=== PATIENT | male | born 1990 | race African-American/Black ===

== ENCOUNTER 2022-02-15 20:09 | Emergency (ER) | payer OTHER ==
[~2022-02-15] VITALS: Ht 185.4 cm; Wt 132.1 kg
[2022-02-15 20:31] VITALS: BP 180/121
[2022-02-16] MEDS ORDERED: AMLO10TA4 MT (22:14)
[2022-02-16] MEDS ORDERED: DOXY100C5 MT (22:14)
== END 2022-02-15 23:02 | disposition left against medical advice (07) ==
LOC: ER 20:09
DX: Z53.21 Procedure and treatment not carried out due to patient leaving prior to being seen by health care provider (principal)

== ENCOUNTER 2022-02-16 20:09 | Inpatient (IN) | payer OTHER ==
[~2022-02-16] VITALS: Ht 185.4 cm; Wt 114.0 kg
[2022-02-16] MEDS ORDERED: AMLODIPINE 10MG TABLET PO ONE (22:00)
[2022-02-16] MEDS ORDERED: DOXY100C5 MT (22:14)
[2022-02-16] MEDS ORDERED: AMLO10TA4 MT (22:14)
[2022-02-16] MEDS ORDERED: GENTAMICIN SULF 40MG/ML 2ML VIAL IM ONE (22:15)
[2022-02-16 22:19] LABS: CLARITY URINE CLOUDY (CLEAR); COLOR URINE YELLOW (YELLOW); KETONES URINE NEGATIVE (NEGATIVE); LEUKOCYTE ESTERASE URINE 2+ (NEGATIVE); NITRITE URINE NEGATIVE (NEGATIVE); OCCULT BLOOD URINE 1+ (NEGATIVE); PH URINE 5.5 (4.5-8.0); PROTEIN URINE 3+ (NEGATIVE); SPECIFIC GRAVITY URINE 1.021 (1.005-1.030); UROBILINOGEN URINE 0.2 E.U./dL (0.2-1.0)
[2022-02-16] MEDS ORDERED: FLUCONAZOLE 50MG TABLET PO ONE (22:30)
[2022-02-16] MEDS ORDERED: INSULIN REGULAR (HUMULIN R) UD 100 UNITS/ML SYR SUBCUT ONE (22:30)
[2022-02-16] MEDS ORDERED: SODIUM CHLORIDE 0.9% 1,000 ML IV ONE ×2 (22:30)
[2022-02-16] MEDS ORDERED: DOXYCYCLINE HYCLATE 100 MG/VIAL IV ONE (22:30)
[2022-02-16] MEDS ORDERED: DOXYCYCLINE 100MG in DEXTROSE 5% WATER 100ML IV NR (22:30)
[2022-02-16 22:51] LABS: BASOPHILS % 0.6 % (0.0-2.0); EOSINOPHILS % 3.1 % (0.0-5.0); HEMATOCRIT. 37.9 % (42.0-52.0); HEMOGLOBIN. 13.5 g/dL (14.0-18.0); LYMPHOCYTES % 37.2 % (20.0-50.0); MEAN CORPUSCULAR HEMOGLOBIN 33.7 pg (28.0-32.0); MEAN CORPUSCULAR VOLUME 94.6 fL (80.0-94.0); MEAN PLATELET VOLUME 8.5 fl (7.4-10.4); MONOCYTES % 5.5 % (2.0-8.0); NEUTROPHILS % 53.6 % (40.0-76.0); PLATELET 272 x1000/uL (130-400); RED BLOOD CELL COUNT 4.01 mill/uL (4.7-6.1); RED CELL DISTRIBUTION WIDTH 13.9 % (11.6-14.6)
[2022-02-16 22:58] LABS: CHLORIDE 97 mEq/L (98-107)
[2022-02-16 23:05] LABS: BETA HYDROXYBUTYRATE 0.1 mMol/L (0.0-0.3)
[2022-02-16] MEDS ORDERED: INSULIN REGULAR (HUMULIN R) 300UNITS/3ML VIAL SUBCUT NR (23:30)
[2022-02-16] MEDS ORDERED: LEVOFLOXACIN 750MG PREMIX 150 ML IV ONE (23:30)
[2022-02-17] MEDS ORDERED: HYDRALAZINE 20MG/ML VIAL IV ONE (00:15)
[2022-02-17] MEDS ORDERED: ASPIRIN 325MG EC TABLET PO ONE (00:15)
[2022-02-17] MEDS ORDERED: ONDANSETRON HCL 4MG/2ML INJ IV PRN (08:15)
[2022-02-17] MEDS ORDERED: DEXTROSE 50% WATER 50ML SYRINGE IV PRN (08:15)
[2022-02-17] MEDS ORDERED: ACETAMINOPHEN 325MG TABLET PO PRN (08:15)
[2022-02-17] MEDS ORDERED: AMLODIPINE 10MG TABLET PO SCH (09:00)
[2022-02-17 09:30] VITALS: BP 155/85
[2022-02-17] MEDS ORDERED: INSULIN GLARGINE 100 UNITS/ML SUBCUT SCH (10:00)
[2022-02-17] MEDS ORDERED: BLOOD SUGAR DIAGNOSTIC STRIP TEST SCH (11:30)
[2022-02-17] MEDS ORDERED: INSULIN LISPRO 100 UNITS/ML SUBCUT SCH (12:00)
[2022-02-19 08:07] LABS: NEISSERIA GONORRHOEAE NAA Negative (Negative)
== END 2022-02-17 10:03 | disposition left against medical advice (07) | DRG 468 ==
LOC: ER 20:09 → MICUSO 02-17 00:08
PROVIDERS: ADMIT Internal Medicine; ATTEND Internal Medicine
DX: R36.9 Urethral discharge, unspecified (principal); N17.9 Acute kidney failure, unspecified; Z88.0 Allergy status to penicillin; N39.0 Urinary tract infection, site not specified; R73.9 Hyperglycemia, unspecified; I16.0 Hypertensive urgency
CPT/HCPCS: 36415; 71045; 80053; 81003; 82010; 82962; 84484; 85025; 87491; 87591; 99291; J0360; J1580; J1815; J1956; J3490; J7030; J7060